=== PATIENT | female | born 1940 | race Caucasian/White ===

== ENCOUNTER 2017-02-15 08:18 | Day surgery (SDC) | payer BC ==
--- NOTE | ~2017-02-15 | OP ---
Record Of Operation [facility] [address] [place]. [address] NAME: AYAD ADHIKARI : 44 STATUS : REG [place] PAT#: [id number] AGE: 76 ADM/REG DATE : 02/15/17 MR#: [id number] REPORT SERV DATE: 02/15/17 DICTATED BY: OSMAN MAHAJAN DATE: 02/15/17 REPORT STATUS : Draft TRANSCRIBED BY: MODL DATE: 02/15/17 DATE OF PROCEDURE: PREPROCEDURE DIAGNOSIS: Cough and abnormal CAT scan. POSTPROCEDURE DIAGNOSIS: Cough and abnormal CAT scan. PROCEDURES: Bronchoscopy with BAL, transbronchial biopsies and brushing. SPECIMENS REMOVED: Left lower lobe bronchial washings, transbronchial biopsies and brushing. DESCRIPTION OF PROCEDURE: Informed consent was obtained, both verbal and written from the patient. The patient was brought to the bronchoscopy suite, and was sedated by Anesthesia with airway intact using an LMA. Fiberoptic scope was inserted through the LMA to visualize the vocal cords which appeared normal, and they moved symmetrically. Lidocaine was injected over the cords to reduce cough. Scope was inserted into the airway to visualize the upper, middle, and lower portions of the trachea which were normal. Mikaela was normal. Left and right bronchial trees were surveyed. All segments of all lobes were opened, and free from any endobronchial lesion, mucosal irregularity or defect. We directed our specimens to the superior segment of the left lower lobe which was one of the consistent abnormalities on most recent CT scan of the chest. We obtained bronchial washings from the left lower lobe as well as transbronchial biopsies and brushings. The biopsies were sent for pathology as well as microbiology for AFB and fungus. Micro brushings also were sent for analysis for culture AFB and fungus, and also sent BAL washings for culture and cytology. The patient tolerated the procedure well. No significant bleeding occurred. Postprocedure chest x-ray is pending. ERIN/AMEYA Osman Mahajan DO / [id number] CC: DO CARRIE Stanley M.D.
[~2017-02-15 08:18] MED LIST: BREO ELLIPTA 21 EACH INH; CALTRA600D PO; ESTRACE0.5 MG PO; FLONASE NAS; MEDROXYPR AC2.5 MG PO; MELATONIN10 M2 PO; PEPCID COMPLETE; PROAIR HFA INH; SINGULAIR1 PO; SPIRIVA RESPIMAT INH
[2017-02-15 08:33] LABS: HEMATOCRIT 36.8 % (36.0-48.0); HEMOGLOBIN 12.1 g/dL (12.0-16.0)
[2017-02-15 08:41] LABS: INTERNATIONAL NORMAL RATI 1.1 UNITS (-); PARTIAL THROMBO TIME 35.6 SEC (22.5-37.2); PROTIME (NOT ORD) 14.5 SEC (12.0-14.5)
[2017-02-15 12:58] LABS: BD FL LYMPH (NOT ORD) 0 %; BF BASO (NOT OF) 0 %; BF LARGE MONONUCLEAR 37 %; BF TOTAL CELL CT (NOT ORD 515 /MM3; BODY FLUID EOS (NOT ORD) 0 %; BODY FLUID RBC (NOT ORD) 1000 /MM3; BODY FLUID SEG (NOT ORD) 63 %
[2017-02-15 12:59] LABS: BD FL SOURCE (NOT ORD) BAL
== END 2017-02-15 23:59 | disposition home or self-care (01) ==
LOC: DMU 08:18
PROVIDERS: Internal Medicine Pulmonary Disease
PROC: 0B9J8ZX Drainage of Left Lower Lung Lobe, Via Natural or Artificial Opening Endoscopic, Diagnostic (ICD-10-PCS; principal; 2017-02-15 09:30)
PROC: 0B9J8ZX Drainage of Left Lower Lung Lobe, Via Natural or Artificial Opening Endoscopic, Diagnostic (ICD-10-PCS; 2017-02-15 09:30)
PROC: 0BBJ8ZX Excision of Left Lower Lung Lobe, Via Natural or Artificial Opening Endoscopic, Diagnostic (ICD-10-PCS; 2017-02-15 09:30)
DX: R05 Cough (principal); R91.8 Other nonspecific abnormal finding of lung field; J45.20 Mild intermittent asthma, uncomplicated; G43.809 Other migraine, not intractable, without status migrainosus; K21.9 Gastro-esophageal reflux disease without esophagitis; D80.3 Selective deficiency of immunoglobulin G [IgG] subclasses; F41.9 Anxiety disorder, unspecified; Z71.89 Other specified counseling; Z87.01 Personal history of pneumonia (recurrent); Z79.818 Long term (current) use of other agents affecting estrogen receptors and estrogen levels; Z79.51 Long term (current) use of inhaled steroids; Z79.3 Long term (current) use of hormonal contraceptives; Z79.899 Other long term (current) drug therapy; Z98.41 Cataract extraction status, right eye; Z98.42 Cataract extraction status, left eye; Z96.1 Presence of intraocular lens; Z98.890 Other specified postprocedural states; Z86.010 Personal history of colon polyps; Z98.51 Tubal ligation status
CPT/HCPCS: 71010; 82365; 85014; 85018; 85610; 85730; 87015; 87070; 87102; 87107; 87116; 87205; 88112; 88305; 89051; 93005; J2405; J3010